=== PATIENT | female | born 1970 | race Two or more races ===

== ENCOUNTER 2024-01-22 18:34 | Emergency (ER) | payer OTHER ==
[~2024-01-22] VITALS: Ht 165.1 cm; Wt 90.7 kg
[2024-01-22 20:17] LABS: HEMATOCRIT 39.1 % (36.0-45.00); HEMOGLOBIN 13.2 g/dL (12.0-15.00); MEAN CELL VOLUME 86.8 fL (80.00-100.00); MEAN CORPUSCULAR HEMOGLOBIN 29.3 pg (27.00-32.0); MEAN CORPUSCULAR HGB CONC 33.8 g/dl (32.0-36.0); PLATELET COUNT 228 K/uL (150-450); RED CELL DISTRIBUTION WIDTH 14.3 % (11.5-14.5)
[2024-01-22 20:37] LABS: INR 0.94; PARTIAL THROMBOPLASTIN TIME 26.5 SECONDS (22.0-34.0); PROTHROMBIN TIME 10.3 SECONDS (9.0-11.5)
[2024-01-22 20:38] LABS: CALCIUM 8.8 mg/dL (8.5-10.1); CREATININE SERUM 0.92 mg/dL (0.55-1.02); GFR 64.1; POTASSIUM 3.8 mEq/L (3.5-5.1)
== END 2024-01-23 | disposition home or self-care (01) ==
LOC: ER 18:34 → EDBD 18:34 → ER 01-23 00:04
PROVIDERS: Emergency Medicine
DX: R07.89 Other chest pain (principal); Z88.6 Allergy status to analgesic agent